=== PATIENT | male | born 1990 | race Caucasian/White ===

== ENCOUNTER 2017-03-09 09:03 | Emergency (ER) | payer MEDICAID ==
[~2017-03-09] VITALS: Ht 182.9 cm; Wt 63.5 kg
[2017-03-09 09:14] VITALS: BP 138/81
== END 2017-03-09 10:41 | disposition home or self-care (01) ==
LOC: ER 09:03
DX: S39.012A Strain of muscle, fascia and tendon of lower back, initial encounter (principal); F17.210 Nicotine dependence, cigarettes, uncomplicated; F12.10 Cannabis abuse, uncomplicated; Z87.442 Personal history of urinary calculi; X58.XXXA Exposure to other specified factors, initial encounter; Y93.89 Activity, other specified; Y99.8 Other external cause status; Y92.89 Other specified places as the place of occurrence of the external cause